=== PATIENT | female | born 1980 ===

== ENCOUNTER 2021-09-03 11:40 | Emergency (ER) | payer SELFPAY ==
[2021-09-03 12:00] VITALS: BP 121/81
[2021-09-03 13:50] LABS: Hematocrit 27.6 % (30.3-42.9); Hemoglobin 8.6 gm/dl (10.1-14.3); Mean Corpuscular HGB Conc 31 % (30-34); Platelet Count 366 K/mm3 (140-440); Red Blood Count 4.23 M/mm3 (3.65-5.03); Red Cell Distribution Width 18.4 % (13.2-15.2)
[2021-09-03 14:02] LABS: Mean Corpuscular Volume 65 fl (79-97)
[2021-09-03 14:14] LABS: Alanine Aminotransferase 11 units/L (7-56); Albumin 3.9 g/dL (3.9-5); Blood Urea Nitrogen 9 mg/dL (7-17); Calcium 8.7 mg/dL (8.4-10.2); Hemolysis Index 3
[2021-09-03 14:37] LABS: BUN/Creatinine Ratio 18
== END 2021-09-03 13:55 | disposition left against medical advice (07) ==
LOC: ED 11:40
DX: E11.65 Type 2 diabetes mellitus with hyperglycemia (principal); Z53.21 Procedure and treatment not carried out due to patient leaving prior to being seen by health care provider
CPT/HCPCS: 36415; 80053; 82010; 82805; 85027